=== PATIENT | female | born 1965 | race African-American/Black ===

== ENCOUNTER 2017-04-13 12:42 | Inpatient (IN) | payer OTHER ==
[2017-04-13 14:53] VITALS: BMI 20.9
--- NOTE | 2017-04-13 15:48 | HP ---
CIWA Score - CIWA Score Nausea/Vomitin Muscle Tremors: 3 Anxiety: 3 Agitation: 3 Paroxysmal Sweats: 2 Orientation: 0-Oriented Tacttile Disturbances: 2-Mild Itch/Numbness/Burn Auditory Disturbances: 2-Mild Harshness/Frighten Visual Disturbances: 2-Mild Sensitivity Headache: 2-Mild CIWA-Ar Total Score: 22 Admission ROS BHS - HPI Chief Complaint: i need help to stop drinking alcohol and cocaine Allergies/Adverse Reactions: Allergies Allergy/AdvReac Type Severity Reaction Status Date / Time Penicillins Allergy Severe Rash Verified 04/13/17 15:34 red sauce Allergy Severe Rash Uncoded 04/13/17 15:34 History of Present Illness: this 51 years old female with alcohol and cocaine dependence,seeking detox,last detox in 2007 unknown location syncope alcohol related vaginal discharge trichomonas htn,vertigo,weight loss,type 2 dm,contusion of right thigh,abrasion of left posterior chest wall, sprain of right ankle with abrasion seen and treated at hospital in [place] 1 week ago nicotine dependence longested period of sobriety 7 years Exam Limitations: No Limitations - Ebola screening Have you traveled outside of the country in the last 21 days: No Have you had contact with anyone from an Ebola affected area: No Have you been sick,other than usual withdrawal symptoms: No - Review of Systems Constitutional: Loss of Appetite, Malaise, Night Sweats, Changes in sleep, Unintentional Wgt. Loss EENT: reports: Nose Congestion Respiratory: reports: No Symptoms reported Cardiac: reports: Palpitations GI: reports: Diarrhea, Nausea, Vomiting : reports: No Symptoms Reported Musculoskeletal: reports: Back Pain (swelling with pain over right ankle dedial aspect with pain on palpation), Muscle Pain, Other (contusionof right thigh) Integumentary: reports: Dryness (abrasion of right ankle with tenderness), Other (abrasion of left chest wall posterior) Neuro: reports: Headache, Tremors Endocrine: reports: No Symptoms Reported Hematology: reports: No Symptoms Reported Psychiatric: reports: No Sypmtoms Reported (insomnia), Judgement Intact, Mood/ Affect Appropiate, Depressed Patient History - Patient Medical History Hx Anemia: No Hx Asthma: Yes (on albuterol inhaler) Hx Chronic Obstructive Pulmonary Disease (COPD): No Hx Cancer: No Hx Cardiac Disorders: No Hx Congestive Heart Failure: No Hx Hypertension: Yes (non compliance) Hx Hypercholesterolemia: No Hx Pacemaker: No HX Cerebrovascular Accident: No Hx Seizures: No Hx Dementia: No Hx Diabetes: Yes (non comliance) Hx Gastrointestinal Disorders: No Hx Liver Disease: No Hx Genitourinary Disorders: No Hx Sexually Transmitted Disorders: No Hx Renal Disease (ESRD): No Hx Thyroid Disease: Yes Hx Human Immunodeficiency Virus (HIV): No (11/09 negative) Hx Hepatitis C: No Hx Depression: Yes Hx Suicide Attempt: No Hx Bipolar Disorder: No Hx Schizophrenia: No Other Medical History: insomnia,no suicidal,no homicidal - Patient Surgical History Past Surgical History: No - PPD History Previous Implant?: Yes Documented Results: Positive w/o proof Implanted On Prior [facility] Admission?: No PPD to be Administered?: No - Reproductive History Patient is a Female of Child Bearing Age (11 -55 yrs old): Yes Patient : No - Smoking Cessation Smoking history: Current every day smoker Have you smoked in the past 12 months: Yes Aproximately how many cigarettes per day: 40 Hx Chewing Tobacco Use: No Initiated information on smoking cessation: Yes 'Breaking Loose' booklet given: 04/13/17 - Substance & Tx. History Hx Alcohol Use: Yes Hx Substance Use: Yes Substance Use Type: Alcohol, Cocaine Hx Substance Use Treatment: Yes (2007 [facility]) - Substances Abused Alcohol Route: Oral Frequency: Daily Amount used: 5 pints cognac Age of first use: 16 Date of Last Use: 04/12/17 Crack Route: Smoking Frequency: Daily Amount used: $400 Age of first use: 16 Date of Last Use: 04/12/17 Family Disease History - Family Disease History Family History: Denies Admission Physical Exam [facility] - Vital Signs Vital Signs: Vital Signs - 24 hr 04/13/17 14:48 Temperature 97.0 F L Pulse Rate 99 H Respiratory 20 Rate Blood Pressure 132/7 - Physical General Appearance: Yes: Moderate Distress, Tremorous, Irritable, Sweating, Anxious HEENTM: Yes: Normal ENT Inspection, NELIA, Pharynx Normal Respiratory: Yes: Lungs Clear, Normal Breath Sounds, No Respiratory Distress Neck: Yes: Supple, Trachea in good position Breast: Yes: Breast Exam Deferred Cardiology: Yes: Within Normal Limits, Regular Rhythm, Regular Rate, S1, S2 Abdominal: Yes: Within Normal Limits, Normal Bowel Sounds, Non Tender, Flat, Soft Genitourinary: Yes: Within Normal Limits Back: Yes: Muscle Spasm Musculoskeletal: Yes: Back pain, Muscle Pain Extremities: Yes: Tremors (swelling with pain of right ankle medial aspect with abrasion contusion of right thigh abrasion of left posterior chest wall) Neurological: Yes: advertising coordinator II-XII NML intact, Fully Oriented, Alert, Motor Strength 5/5 Integumentary: Yes: Dry Lymphatic: Yes: Within Normal Limits - Diagnostic (1) Alcohol dependence with uncomplicated withdrawal Current Visit: Yes Status: Acute (2) Cocaine dependence Current Visit: Yes Status: Acute (3) Essential hypertension Current Visit: Yes Status: Acute (4) Vertigo Current Visit: Yes Status: Acute (5) Weight loss Current Visit: Yes Status: Acute (6) Syncope Current Visit: Yes Status: Acute (7) Sprain of right ankle Current Visit: Yes Status: Acute (8) Contusion Current Visit: Yes Status: Acute (9) Asthma Current Visit: Yes Status: Acute (10) Nicotine dependence Current Visit: Yes Status: Acute (11) Anxiety and depression Current Visit: Yes Status: Acute (12) Insomnia Current Visit: Yes Status: Acute (13) Abrasion Current Visit: Yes Status: Acute Cleared for Admission [facility] - Detox or Rehab [facility] Level of Care: Medically Managed Detox Regimen/Protocol: Librium [facility] Breath Alcohol Content Breath Alcohol Content: 0.035 Urine Pregancy Test - Result Urine Test Results: Negative- NO Line Present Urine Drug Screen - Results Drug Screen Negative: No Urine Drug Screen Results: JULIA-Cocaine
[2017-04-13] MEDS ORDERED: LOPERAMIDE HCL 2 MG CAPSULE PO PRN (16:05)
[2017-04-13] MEDS ORDERED: chlordiazePOXIDE HCL 25 MG CAPSULE PO PRN (16:05)
[2017-04-13] MEDS ORDERED: MAG HYDROX/AL HYDROX/SIMETH 30 ML UNIT-DOSE CUP PO PRN (16:05)
[2017-04-13] MEDS ORDERED: guaiFENesin/D-METHORPHAN HB 10 ML UNIT-DOSE CUPS PO PRN (16:05)
[2017-04-13] MEDS ORDERED: NICOTINE POLACRILEX 2 MG GUM BC PRN (16:05)
[2017-04-13] MEDS ORDERED: ACETAMINOPHEN 325 MG TABLET (FP) PO PRN (16:05)
[2017-04-13] MEDS ORDERED: MENTHOL/PHENOL 1 EACH UD MM PRN (16:05)
[2017-04-13] MEDS ORDERED: hydrOXYzine PAMOATE 50 MG CAPSULE (FP) PO PRN (16:05)
[2017-04-13] MEDS ORDERED: MAGNESIUM CITRATE 300 ML BOTTLE PO PRN (16:05)
[2017-04-13] MEDS ORDERED: diphenhydrAMINE HCL 50 MG CAPSULE PO PRN (16:05)
[2017-04-13] MEDS ORDERED: P-EPHED 60MG/TRIPROLIDI 2.5MG TABLET PO PRN (16:05)
[2017-04-13] MEDS ORDERED: MAGNESIUM HYDROX 2400MG/30ML ORAL SUSPENSION 30 ML CUP PO PRN (16:05)
[2017-04-13] MEDS ORDERED: chlordiazePOXIDE HCL 25 MG CAPSULE PO ONE (17:15)
[2017-04-13] MEDS: CYPROHEPTADINE HCL 4 MG TABLET PO SCH (17:35)
[2017-04-13] MEDS: metFORMIN HCL 500 MG TABLET (FP) PO SCH (17:35)
[2017-04-13] MEDS: NICOTINE 21 MG/24 HOURS TOPICAL PATCH TD SCH (17:41)
[2017-04-13] MEDS: chlordiazePOXIDE HCL 25 MG CAPSULE PO SCH (23:35)
[2017-04-13] MEDS: THIAMINE HCL 100 MG TABLET (FP) PO SCH (23:35)
[2017-04-13] MEDS: BACITRACIN 0.9 GM PACKET TP SCH (23:35)
[2017-04-13] MEDS: MECLIZINE HCL 12.5 MG TABLET PO SCH (23:35)
[2017-04-14 02:28] LABS: URINE APPEARANCE CLOUDY; URINE BILIRUBIN NEGATIVE (NEGATIVE); URINE COLOR YELLOW; URINE GLUCOSE (UA) NEGATIVE (NEGATIVE); URINE KETONE NEGATIVE (NEGATIVE); URINE LEUK ESTERASE NEGATIVE (NEGATIVE); URINE NITRITE NEGATIVE (NEGATIVE); URINE PROTEIN NEGATIVE (NEGATIVE); URINE UROBILINOGEN NEGATIVE E.U./dl (0.2-1.0)
[2017-04-14 02:34] LABS: URINE BLOOD 1+ (NEGATIVE)
[2017-04-14 02:39] LABS: CALCIUM OXALATE CRYSTALS RARE /hpf (NONE SEEN); URINE BACTERIA RARE /hpf (NONE SEEN); URINE MUCUS RARE; URINE RBC 16 /hpf (0-3); URINE WBC 2 /hpf (3-5)
[2017-04-14] MEDS: chlordiazePOXIDE HCL 25 MG CAPSULE PO SCH ×4 (06:12→22:37)
[2017-04-14] MEDS: CYPROHEPTADINE HCL 4 MG TABLET PO SCH ×3 (06:13→17:10)
[2017-04-14] MEDS: MECLIZINE HCL 12.5 MG TABLET PO SCH ×4 (06:14→22:37)
[2017-04-14] MEDS: metFORMIN HCL 500 MG TABLET (FP) PO SCH ×2 (07:16→17:10)
--- NOTE | 2017-04-14 09:57 | PN ---
S CIWA - CIWA Score Nausea/Vomitin Muscle Tremors: 3 Anxiety: 3 Agitation: 2 Paroxysmal Sweats: 1-Minimal Palms Moist Orientation: 0-Oriented Tacttile Disturbances: 1-Very Mild Itch/Numbness Auditory Disturbances: 1-Very Mild Visual Disturbances: 1-Very Mild Sensitivity Headache: 2-Mild CIWA-Ar Total Score: 17 BHS Progress Note (SOAP) Subjective: ALERT,IRRITABLE,ANXIOUS,INTERRUPTED SLEEP,TREMOR Objective: 04/14/17 09:55 Vital Signs Temperature 99.3 F 04/14/17 09:30 Pulse Rate 85 04/14/17 09:30 Respiratory Rate 18 04/14/17 09:30 Blood Pressure 132/63 04/14/17 09:30 O2 Sat by Pulse Oximetry (%) EKG NSR,NRMAL ECG Laboratory Last Values POC Glucometer 129 UNITS (()) 04/14/17 07:12 Urine Color Yellow 04/14/17 00:28 Urine Appearance Cloudy 04/14/17 00:28 Urine pH 6.0 (5.0-8.0) 04/14/17 00:28 Urine Protein Negative (NEGATIVE) 04/14/17 00:28 Urine Glucose (UA) Negative (NEGATIVE) 04/14/17 00:28 Urine Ketones Negative (NEGATIVE) 04/14/17 00:28 Urine Blood 1+ (NEGATIVE) H 04/14/17 00:28 Urine Nitrite Negative (NEGATIVE) 04/14/17 00:28 Urine Bilirubin Negative (NEGATIVE) 04/14/17 00:28 Urine Urobilinogen Negative E.U./dl (0.2-1.0) 04/14/17 00:28 Ur Leukocyte Esterase Negative (NEGATIVE) 04/14/17 00:28 Urine RBC 16 /hpf (0-3) 04/14/17 00:28 Urine WBC 2 /hpf (3-5) 04/14/17 00:28 Ur Epithelial Cells Rare /hpf (FEW) 04/14/17 00:28 Calcium Oxalate Crystal Rare /hpf (NONE SEEN) 04/14/17 00:28 Urine Bacteria Rare /hpf (NONE SEEN) 04/14/17 00:28 Urine Mucus Rare 04/14/17 00:28 04/14/17 09:56 Assessment: 04/14/17 09:56 WITHDRAWAL SYMPTOM Plan: CONTINUE DETOX,LABS PENDING
[2017-04-14 10:08] LABS: MCH 32.8 pg (25.7-33.7); MCHC 33.4 g/dl (32.0-36.0); MEAN CELL VOLUME 98.3 fl (80-96); MEAN PLT VOLUME 10.5 fl (7.5-11.1); PLATELET COUNT 176 K/MM3 (134-434); RDW 13.3 % (11.6-15.6); WHITE BLOOD COUNT 9.8 K/mm3 (4.0-10.0)
[2017-04-14 10:41] LABS: HIV 1 & 2 AB NEGATIVE; HIV 1 AGp24 NEGATIVE
[2017-04-14 11:01] LABS: SICKLE CELL SCREEN NEGATIVE (NEGATIVE)
[2017-04-14 11:04] LABS: ALBUMIN 3.3 g/dl (3.4-5.0); ALK PHOS 94 U/L (45-117); ANION GAP 6 (8-16); BILIRUBIN,TOTAL 0.9 mg/dL (0.2-1.0); CALCIUM 8.9 mg/dL (8.5-10.1); CO2 30 mmol/L (21-32); CREATININE 0.9 mg/dL (0.55-1.02); GLUCOSE,RANDOM 97 mg/dL (74-106); SGOT/AST 28 U/L (15-37); SGPT/ALT 23 U/L (12-78); TOT PROT 6.9 g/dl (6.4-8.2)
[2017-04-14] MEDS: HYDROCHLOROTHIAZIDE 12.5 MG CAPSULE (FP) PO SCH (11:13)
[2017-04-14] MEDS: PRENATAL VITAMINS W/ FOLIC ACID TABLET (FP) PO SCH (11:13)
[2017-04-14] MEDS: BACITRACIN 0.9 GM PACKET TP SCH ×2 (12:30→22:36)
[2017-04-14] MEDS: NICOTINE 21 MG/24 HOURS TOPICAL PATCH TD SCH (12:34)
--- NOTE | 2017-04-14 13:21 | CONSULT ---
[facility] Psychiatric Consult - Data Date of interview: 04/14/17 Admission source: [facility] Identifying data: This is 51 years old male with no psychiatric hospitalization history intoxiocated with: Alcohol, Cocaine and Nicotine Substance Abuse History: - Smoking Cessation. Smoking history: Current every day smoker. Have you smoked in the past 12 months: Yes. Aproximately how many cigarettes per day: 40. Hx Chewing Tobacco Use: No. Initiated information on smoking cessation: Yes. 'Breaking Loose' booklet given: 04/13/17. - Substance & Tx. History. Hx Alcohol Use: Yes. Hx Substance Use: Yes. Substance Use Type : Alcohol, Cocaine. Hx Substance Use Treatment: Yes ([facility] - Substances Abused. Alcohol. Route: Oral. Frequency: Daily. Amount used: 5 pints cognac. Age of first use: 16. Date of Last Use: . Crack. Route: Smoking. Frequency: Daily. Amount used: $400. Age of first use: 16. Date of Last Use: 04/12/17 Medical History: Vertigo, Right Ankle Sprain, Asrthma,HTN, Syncope history Psychiatric History: Patient reports history of depression and anxiety, reports no medicaotions taking prior to admission Physical/Sexual Abuse/Trauma History: Denies Additional Comment: Observation. Detox Unit Care Protocol Mental Status Exam - Mental Status Exam Alert and Oriented to: Person Cognitive Function: Fair Patient Appearance: Unkempt Mood: Sad Affect: Flat Patient Behavior: Sedated Speech Pattern: Delayed Voice Loudness: Mildly Soft/Quiet Thought Process: Circumstantial Thought Disorder: Being Controlled Hallucinations: Denies Suicidal Ideation: Denies Homicidal Ideation: Denies Insight/Judgement: Fair Sleep: Difficulty falling asleep Appetite: Weight loss Muscle strength/Tone: Mild Hypotonicity Gait/Station: Shuffling Additional Comments: Observation. Detox Unit Care Protocol Psychiatric Findings - Problem List ([place] 1, 2,3) (1) Alcoh dep NEC/NOS, unspec Status: Acute (2) Alcohol dependence Status: Acute (3) Alcohol dependence with uncomplicated withdrawal Status: Acute (4) Cocaine dependence Status: Acute (5) Nicotine dependence Status: Acute (6) Weight loss Status: Acute (7) Drug-induced mood disorder Status: Acute - Initial Treatment Plan Initial Treatment Plan: Observation. Detox Unit Care Protocol
--- NOTE | 2017-04-14 15:49 | EKG ---
Test Reason : Blood Pressure : / mmHG Vent. Rate : 083 BPM Atrial Rate : 083 BPM P-R Int : 160 ms QRS Dur : 104 ms QT Int : 378 ms P-R-T Axes : 073 033 069 degrees QTc Int : 444 ms NORMAL SINUS RHYTHM NORMAL ECG NO PREVIOUS ECGS AVAILABLE Confirmed by HIRA RANGEL MD ([id number]) on 04/14/2017 3:49:40 PM Referred By: Confirmed By:HIRA RANGEL MD
[2017-04-14] MEDS: IBUPROFEN 400 MG TABLET (FP) PO PRN (18:08)
[2017-04-14] MEDS: THIAMINE HCL 100 MG TABLET (FP) PO SCH (23:31)
[2017-04-15] MEDS: IBUPROFEN 400 MG TABLET (FP) PO PRN (06:29)
[2017-04-15] MEDS: CYPROHEPTADINE HCL 4 MG TABLET PO SCH ×3 (06:29→17:37)
[2017-04-15] MEDS: MECLIZINE HCL 12.5 MG TABLET PO SCH ×3 (06:29→22:39)
[2017-04-15] MEDS: chlordiazePOXIDE HCL 25 MG CAPSULE PO SCH ×4 (06:35→17:37)
[2017-04-15] MEDS: IBUPROFEN 600 MG TABLET (FP) PO PRN ×2 (09:39→17:37)
--- NOTE | 2017-04-15 10:03 | PN ---
S CIWA - CIWA Score Nausea/Vomitin Muscle Tremors: 3 Anxiety: 3 Agitation: 2 Paroxysmal Sweats: 1-Minimal Palms Moist Orientation: 0-Oriented Tacttile Disturbances: 1-Very Mild Itch/Numbness Auditory Disturbances: 1-Very Mild Visual Disturbances: 1-Very Mild Sensitivity Headache: 2-Mild CIWA-Ar Total Score: 17 BHS Progress Note (SOAP) Subjective: ALERT,IRRITABLE,ANXIOUS,INTERRUPTED SLEEP,PAIN IN THE RIGHT FOOT,ANKLE Objective: 04/15/17 09:53 Vital Signs Temperature 98.1 F 04/15/17 06:00 Pulse Rate 63 04/15/17 06:00 Respiratory Rate 18 04/15/17 06:00 Blood Pressure 134/80 04/15/17 06:00 O2 Sat by Pulse Oximetry (%) 04/15/17 10:03 CHEAT X RAY NORMAL RIGHT ANKLE AND FOOT CALCIFICATION AND SOFT TISSUE SWELLING ADJACENT TO TIP OF MEDIAL MALLEOLUS CONSISTENT WITH AVULSION INJURY Assessment: 04/15/17 10:06 WITHDRAWAL SYMPTOM FX OF MEDIAL MALLEOLUS TIP RIGHT 04/15/17 10:18 04/15/17 10:18 Plan: TO ER AT [facility] FOR EVALUATION AND TREATMENT,SPOKE WITH DR LEVI,TOE BE TRANSPORTED BY [facility]
[2017-04-15] MEDS: NICOTINE 21 MG/24 HOURS TOPICAL PATCH TD SCH (10:08)
[2017-04-15] MEDS: HYDROCHLOROTHIAZIDE 12.5 MG CAPSULE (FP) PO SCH (10:08)
[2017-04-15] MEDS: PRENATAL VITAMINS W/ FOLIC ACID TABLET (FP) PO SCH (10:08)
[2017-04-15] MEDS: metFORMIN HCL 500 MG TABLET (FP) PO SCH ×2 (10:08→17:37)
[2017-04-15] MEDS: BACITRACIN 0.9 GM PACKET TP SCH ×2 (10:09→22:39)
[2017-04-15] MEDS: chlordiazePOXIDE 5 MG CAPSULE PO SCH (22:39)
[2017-04-15] MEDS: THIAMINE HCL 100 MG TABLET (FP) PO SCH (22:40)
[2017-04-16] MEDS: CYPROHEPTADINE HCL 4 MG TABLET PO SCH ×3 (06:23→17:16)
[2017-04-16] MEDS: chlordiazePOXIDE 5 MG CAPSULE PO SCH ×3 (06:23→17:17)
[2017-04-16] MEDS: MECLIZINE HCL 12.5 MG TABLET PO SCH ×3 (06:27→21:58)
[2017-04-16] MEDS: IBUPROFEN 600 MG TABLET (FP) PO PRN ×3 (06:29→22:23)
--- NOTE | 2017-04-16 10:19 | PN ---
[facility]HS Progress Note (SOAP) Subjective: ALERT,IRRITABLE,ANXIOUS,PAIN IN THE RIGHT ANKLE AND FOOT IS LESS,INTERRUPTED SLEEP Objective: 04/16/17 10:18 Vital Signs Temperature 98.8 F 04/16/17 10:11 Pulse Rate 79 04/16/17 10:11 Respiratory Rate 18 04/16/17 10:11 Blood Pressure 116/66 04/16/17 10:11 O2 Sat by Pulse Oximetry (%) Assessment: 04/16/17 10:18 WITHDRAWAL SYMPTOM Plan: CONTINUE DETOX
[2017-04-16] MEDS: NICOTINE 21 MG/24 HOURS TOPICAL PATCH TD SCH (10:51)
[2017-04-16] MEDS: PRENATAL VITAMINS W/ FOLIC ACID TABLET (FP) PO SCH (10:52)
[2017-04-16] MEDS: BACITRACIN 0.9 GM PACKET TP SCH ×2 (10:52→21:59)
[2017-04-16] MEDS: HYDROCHLOROTHIAZIDE 12.5 MG CAPSULE (FP) PO SCH (10:52)
[2017-04-16] MEDS: metFORMIN HCL 500 MG TABLET (FP) PO SCH ×2 (11:46→17:16)
[2017-04-16] MEDS: THIAMINE HCL 100 MG TABLET (FP) PO SCH (21:58)
[2017-04-16] MEDS: chlordiazePOXIDE HCL 10 MG CAPSULE PO SCH (22:23)
[2017-04-17 05:54] VITALS: BP 120/74; PULSE 61; TEMP 97
[2017-04-17] MEDS: MECLIZINE HCL 12.5 MG TABLET PO SCH ×2 (05:56→13:43)
[2017-04-17] MEDS: chlordiazePOXIDE HCL 10 MG CAPSULE PO SCH ×2 (05:56→11:01)
[2017-04-17] MEDS: CYPROHEPTADINE HCL 4 MG TABLET PO SCH ×2 (06:00→10:37)
[2017-04-17] MEDS: metFORMIN HCL 500 MG TABLET (FP) PO SCH (07:19)
--- NOTE | 2017-04-17 08:49 | PN ---
S Progress Note (SOAP) Subjective: ALERT,IRRITABLE,PAIN IN THE RIGHT ANKLE Objective: 04/17/17 08:47 Vital Signs Temperature 97.0 F L 04/17/17 05:54 Pulse Rate 61 04/17/17 05:54 Respiratory Rate 16 04/17/17 05:54 Blood Pressure 120/74 04/17/17 05:54 O2 Sat by Pulse Oximetry (%) 04/17/17 08:47 Assessment: 04/17/17 08:47 DETOX COMPLETE,NO WITHDRAWAL SYMPTOM Plan: DISCHARGE TODAY,TO REHAB ARRANGEMENT
--- NOTE | 2017-04-17 08:56 | DS ---
[facility] Detox Discharge Summary Admission Date: 04/13/17 Discharge Date: 04/17/17 - History Present History: Alcohol Dependence, Cocaine Dependence Additional Comments: FOLLOW UP WITH [facility] ARR[facility] Pertinent Past History: ESSENTIAL HYPERTENSION VERTIGO WEIGHT LOSS SYNCOPE ASTHMA TYPE 2 DM CONTUSIONS INSOMNIA ABRASIONS - Physical Exam Results Vital Signs: Vital Signs Temperature 97.0 F L 04/17/17 05:54 Pulse Rate 61 04/17/17 05:54 Respiratory Rate 16 04/17/17 05:54 Blood Pressure 120/74 04/17/17 05:54 O2 Sat by Pulse Oximetry (%) Pertinent Admission Physical Exam Findings: WITHDRAWAL SYMPTOM - Treatment Hospital Course: Detox Protocol Followed, Detoxed Safely, Responded well, Discharged Condition Good, Rehab Referral Accepted Patient has Accepted a Rehab Referral to: [facility] - Medication Discharge Medications: Ambulatory Orders Cyproheptadine [Periactin -] 4 mg PO Q8H 04/13/17 Hydrochlorothiazide [Hctz -] 12.5 mg PO DAILY 04/13/17 Meclizine HCl [Antivert -] 12.5 mg PO TID 04/13/17 Metformin HCl [Glucophage -] 500 mg PO BID 04/13/17 - Diagnosis (1) Alcohol dependence with uncomplicated withdrawal Current Visit: Yes Status: Acute (2) Cocaine dependence Current Visit: Yes Status: Acute (3) Essential hypertension Current Visit: Yes Status: Acute (4) Vertigo Current Visit: Yes Status: Acute (5) Weight loss Current Visit: Yes Status: Acute (6) Syncope Current Visit: Yes Status: Acute (7) Sprain of right ankle Current Visit: Yes Status: Acute (8) Contusion Current Visit: Yes Status: Acute (9) Asthma Current Visit: Yes Status: Acute (10) Nicotine dependence Current Visit: Yes Status: Acute (11) Anxiety and depression Current Visit: Yes Status: Acute (12) Insomnia Current Visit: Yes Status: Acute (13) Abrasion Current Visit: Yes Status: Acute (14) Fracture of right ankle Current Visit: Yes Status: Acute (15) Avulsion fracture of ankle Current Visit: No Status: Acute Qualifiers: Encounter type: initial encounter Fracture type: closed Laterality : left Qualified Code(s): S82.892A - Other fracture of left lower leg, initial encounter for closed fracture - AMA Did Patient Leave Against Medical Advice: No
[2017-04-17] MEDS: IBUPROFEN 600 MG TABLET (FP) PO PRN (10:37)
[2017-04-17] MEDS: HYDROCHLOROTHIAZIDE 12.5 MG CAPSULE (FP) PO SCH (10:57)
[2017-04-17] MEDS: BACITRACIN 0.9 GM PACKET TP SCH (10:57)
[2017-04-17] MEDS: NICOTINE 21 MG/24 HOURS TOPICAL PATCH TD SCH (10:57)
[2017-04-17] MEDS: PRENATAL VITAMINS W/ FOLIC ACID TABLET (FP) PO SCH (10:58)
== END 2017-04-17 13:46 | disposition other institution (70) | DRG 774 ==
LOC: YASAS 12:42 → Y6N 16:27
PROVIDERS: ADMIT Internal Medicine; ATTEND Internal Medicine
PROC: HZ2ZZZZ Detoxification Services for Substance Abuse Treatment (ICD-10-PCS; principal; 2017-04-13)
DX: F10.230 Alcohol dependence with withdrawal, uncomplicated (principal); F14.20 Cocaine dependence, uncomplicated; F17.210 Nicotine dependence, cigarettes, uncomplicated; F41.8 Other specified anxiety disorders; I10 Essential (primary) hypertension; R42 Dizziness and giddiness; J45.909 Unspecified asthma, uncomplicated; G47.00 Insomnia, unspecified; E11.9 Type 2 diabetes mellitus without complications; Z91.14 Patient's other noncompliance with medication regimen; Z87.898 Personal history of other specified conditions; Z86.79 Personal history of other diseases of the circulatory system; S82.892D Other fracture of left lower leg, subsequent encounter for closed fracture with routine healing; S20.319D Abrasion of unspecified front wall of thorax, subsequent encounter; S70.11XD Contusion of right thigh, subsequent encounter; X58.XXXD Exposure to other specified factors, subsequent encounter
CPT/HCPCS: 36415; 71010-TC; 73610-TC-RT; 73630-TC-RT; 80053; 81003; 81015; 85027; 85660; 86593; 87389; 93005; 93010

== ENCOUNTER 2017-04-15 11:22 | Emergency (ER) | payer OTHER ==
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
[2017-04-15 11:48] VITALS: TEMP 98.2; BMI 20.9
[2017-04-15] MEDS ORDERED: DIPHTH,PERTUSS(ACELL),TET VAC 0.5 ML VIAL IM ONE (11:53)
[2017-04-15 14:55] VITALS: BP 127/78; PULSE 69
== END 2017-04-15 14:54 | disposition other institution (70) ==
LOC: JER 11:22
PROC: 3E0234Z Introduction of Serum, Toxoid and Vaccine into Muscle, Percutaneous Approach (ICD-10-PCS; principal; 2017-04-15)
DX: S82.892A Other fracture of left lower leg, initial encounter for closed fracture (principal); E11.9 Type 2 diabetes mellitus without complications; I10 Essential (primary) hypertension; Z91.14 Patient's other noncompliance with medication regimen; F14.10 Cocaine abuse, uncomplicated; F10.10 Alcohol abuse, uncomplicated; V48.1XXA Car passenger injured in noncollision transport accident in nontraffic accident, initial encounter; Y92.414 Local residential or business street as the place of occurrence of the external cause; Y93.39 Activity, other involving climbing, rappelling and jumping off; Y99.8 Other external cause status
CPT/HCPCS: 90471; 99283-25

== ENCOUNTER 2017-04-17 13:51 | Inpatient (IN) | payer OTHER ==
[2017-04-17] MEDS ORDERED: guaiFENesin/D-METHORPHAN HB 10 ML UNIT-DOSE CUPS PO PRN (15:07)
[2017-04-17] MEDS ORDERED: LOPERAMIDE HCL 2 MG CAPSULE PO PRN (15:07)
[2017-04-17] MEDS ORDERED: MAGNESIUM CITRATE 300 ML BOTTLE PO PRN (15:07)
[2017-04-17] MEDS ORDERED: IBUPROFEN 400 MG TABLET (FP) PO PRN (15:07)
[2017-04-17] MEDS ORDERED: MENTHOL/PHENOL 1 EACH UD MM PRN (15:07)
[2017-04-17] MEDS ORDERED: P-EPHED 60MG/TRIPROLIDI 2.5MG TABLET PO PRN (15:07)
[2017-04-17] MEDS ORDERED: MAGNESIUM HYDROX 2400MG/30ML ORAL SUSPENSION 30 ML CUP PO PRN (15:07)
[2017-04-17] MEDS ORDERED: hydrOXYzine PAMOATE 25 MG CAPSULE (FP) PO PRN (15:07)
[2017-04-17] MEDS ORDERED: MECLIZINE HCL 12.5 MG TABLET PO PRN (15:11)
--- NOTE | 2017-04-17 15:23 | HP ---
[facility] Rehab Assess/Revision - Admission History Admitted to Rehab from: [facility] Date of Admission to Rehab: 04/17/17 - Findings Detox History & Physical reviewed: Yes Concur with findings: Yes Comments/Additional Findings: FOR REHAB PROTOCOL
[2017-04-17] MEDS: CYPROHEPTADINE HCL 4 MG TABLET PO SCH ×2 (17:26→23:18)
[2017-04-17] MEDS: THIAMINE HCL 100 MG TABLET (FP) PO SCH (21:20)
[2017-04-17] MEDS: diphenhydrAMINE HCL 50 MG CAPSULE PO PRN (21:20)
[2017-04-17] MEDS: IBUPROFEN 600 MG TABLET (FP) PO PRN (23:18)
[2017-04-18] MEDS: CYPROHEPTADINE HCL 4 MG TABLET PO SCH ×3 (06:26→21:46)
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
[2017-04-18] MEDS: metFORMIN HCL 500 MG TABLET (FP) PO SCH ×2 (07:20→16:55)
[2017-04-18] MEDS: BACITRACIN 0.9 GM PACKET TP SCH ×2 (10:58→21:46)
[2017-04-18] MEDS: PRENATAL VITAMINS W/ FOLIC ACID TABLET (FP) PO SCH (10:58)
[2017-04-18] MEDS: HYDROCHLOROTHIAZIDE 12.5 MG CAPSULE (FP) PO SCH (10:58)
[2017-04-18] MEDS: ACETAMINOPHEN 325 MG TABLET (FP) PO PRN ×2 (11:01→17:28)
--- NOTE | 2017-04-18 14:43 | HP ---
Psychiatrist Admission - Data Date of interview: 04/18/17 Admission source: 6N Vital Signs: Vital Signs - 24 hr 04/18/17 04/18/17 04/18/17 00:30 03:30 07:26 Temperature 97.8 F Pulse Rate 66 Respiratory 18 18 18 Rate Blood Pressure 129/95 Allergies/Adverse Reactions: Allergies Allergy/AdvReac Type Severity Reaction Status Date / Time Penicillins Allergy Severe Rash Verified 04/15/17 11:40 red sauce Allergy Severe Rash Uncoded 04/15/17 11:40 Psychiatric Findings - Problem List ([place] 1, 2,3) (1) Alcoh dep NEC/NOS, unspec Current Visit: Yes Status: Acute (2) Alcohol dependence Current Visit: Yes Status: Acute (3) Cocaine dependence Current Visit: No Status: Acute (4) Nicotine dependence Current Visit: No Status: Acute
[2017-04-18] MEDS: IBUPROFEN 600 MG TABLET (FP) PO PRN ×2 (14:53→22:01)
[2017-04-18] MEDS: diphenhydrAMINE HCL 50 MG CAPSULE PO PRN (21:46)
[2017-04-18] MEDS: THIAMINE HCL 100 MG TABLET (FP) PO SCH (21:46)
[2017-04-18] MEDS: traZODone HCL 50 MG TABLET (FP) PO SCH (21:47)
[2017-04-19] MEDS: metFORMIN HCL 500 MG TABLET (FP) PO SCH ×2 (06:20→17:30)
[2017-04-19] MEDS: CYPROHEPTADINE HCL 4 MG TABLET PO SCH ×3 (06:22→22:09)
[2017-04-19] MEDS: HYDROCHLOROTHIAZIDE 12.5 MG CAPSULE (FP) PO SCH (10:34)
[2017-04-19] MEDS: PRENATAL VITAMINS W/ FOLIC ACID TABLET (FP) PO SCH (10:35)
[2017-04-19] MEDS: SERTRALINE HCL 50 MG TABLET (FP) PO SCH (10:35)
[2017-04-19] MEDS: BACITRACIN 0.9 GM PACKET TP SCH ×2 (10:37→22:09)
[2017-04-19] MEDS: IBUPROFEN 600 MG TABLET (FP) PO PRN (19:20)
[2017-04-19] MEDS: THIAMINE HCL 100 MG TABLET (FP) PO SCH (22:09)
[2017-04-19] MEDS: traZODone HCL 50 MG TABLET (FP) PO SCH (22:09)
[2017-04-20] MEDS: CYPROHEPTADINE HCL 4 MG TABLET PO SCH ×3 (06:49→21:46)
[2017-04-20] MEDS: metFORMIN HCL 500 MG TABLET (FP) PO SCH ×2 (07:04→16:50)
[2017-04-20] MEDS: HYDROCHLOROTHIAZIDE 12.5 MG CAPSULE (FP) PO SCH (10:10)
[2017-04-20] MEDS: SERTRALINE HCL 50 MG TABLET (FP) PO SCH (10:10)
[2017-04-20] MEDS: PRENATAL VITAMINS W/ FOLIC ACID TABLET (FP) PO SCH (10:10)
[2017-04-20] MEDS: BACITRACIN 0.9 GM PACKET TP SCH ×2 (10:11→21:44)
[2017-04-20] MEDS: IBUPROFEN 600 MG TABLET (FP) PO PRN ×2 (10:11→21:44)
[2017-04-20] MEDS: diphenhydrAMINE HCL 50 MG CAPSULE PO PRN (21:46)
[2017-04-20] MEDS: traZODone HCL 50 MG TABLET (FP) PO SCH (21:46)
[2017-04-20] MEDS: THIAMINE HCL 100 MG TABLET (FP) PO SCH (21:47)
[2017-04-21] MEDS: CYPROHEPTADINE HCL 4 MG TABLET PO SCH ×3 (07:07→21:40)
[2017-04-21] MEDS: metFORMIN HCL 500 MG TABLET (FP) PO SCH ×2 (07:07→16:41)
[2017-04-21] MEDS: BACITRACIN 0.9 GM PACKET TP SCH ×2 (10:10→21:40)
[2017-04-21] MEDS: HYDROCHLOROTHIAZIDE 12.5 MG CAPSULE (FP) PO SCH (10:11)
[2017-04-21] MEDS: PRENATAL VITAMINS W/ FOLIC ACID TABLET (FP) PO SCH (10:11)
[2017-04-21] MEDS: SERTRALINE HCL 50 MG TABLET (FP) PO SCH (10:11)
[2017-04-21] MEDS: IBUPROFEN 600 MG TABLET (FP) PO PRN (14:26)
[2017-04-21] MEDS: THIAMINE HCL 100 MG TABLET (FP) PO SCH (21:40)
[2017-04-21] MEDS: traZODone HCL 50 MG TABLET (FP) PO SCH (21:46)
[2017-04-22] MEDS: CYPROHEPTADINE HCL 4 MG TABLET PO SCH ×3 (06:40→21:43)
[2017-04-22] MEDS: ACETAMINOPHEN 325 MG TABLET (FP) PO PRN (06:41)
[2017-04-22] MEDS: metFORMIN HCL 500 MG TABLET (FP) PO SCH ×2 (07:20→16:55)
[2017-04-22] MEDS: PRENATAL VITAMINS W/ FOLIC ACID TABLET (FP) PO SCH (10:02)
[2017-04-22] MEDS: BACITRACIN 0.9 GM PACKET TP SCH ×2 (10:02→21:43)
[2017-04-22] MEDS: HYDROCHLOROTHIAZIDE 12.5 MG CAPSULE (FP) PO SCH (10:02)
[2017-04-22] MEDS: SERTRALINE HCL 50 MG TABLET (FP) PO SCH (10:02)
[2017-04-22] MEDS: IBUPROFEN 600 MG TABLET (FP) PO PRN ×2 (13:19→21:43)
[2017-04-22] MEDS: traZODone HCL 50 MG TABLET (FP) PO SCH (21:43)
[2017-04-22] MEDS: diphenhydrAMINE HCL 50 MG CAPSULE PO PRN (21:43)
[2017-04-22] MEDS: THIAMINE HCL 100 MG TABLET (FP) PO SCH (21:43)
[2017-04-23] MEDS: metFORMIN HCL 500 MG TABLET (FP) PO SCH ×2 (06:26→18:00)
[2017-04-23] MEDS: CYPROHEPTADINE HCL 4 MG TABLET PO SCH ×3 (06:26→22:14)
[2017-04-23] MEDS: HYDROCHLOROTHIAZIDE 12.5 MG CAPSULE (FP) PO SCH (09:50)
[2017-04-23] MEDS: SERTRALINE HCL 50 MG TABLET (FP) PO SCH (09:50)
[2017-04-23] MEDS: BACITRACIN 0.9 GM PACKET TP SCH ×2 (09:50→22:14)
[2017-04-23] MEDS: PRENATAL VITAMINS W/ FOLIC ACID TABLET (FP) PO SCH (09:50)
[2017-04-23] MEDS: IBUPROFEN 600 MG TABLET (FP) PO PRN (09:51)
[2017-04-23] MEDS: ACETAMINOPHEN 325 MG TABLET (FP) PO PRN (13:21)
[2017-04-23] MEDS: traZODone HCL 50 MG TABLET (FP) PO SCH (22:14)
[2017-04-23] MEDS: diphenhydrAMINE HCL 50 MG CAPSULE PO PRN (22:14)
[2017-04-23] MEDS: THIAMINE HCL 100 MG TABLET (FP) PO SCH (22:14)
[2017-04-24] MEDS: diphenhydrAMINE HCL 50 MG CAPSULE PO PRN ×2 (00:29→21:36)
[2017-04-24] MEDS: ACETAMINOPHEN 325 MG TABLET (FP) PO PRN (00:29)
[2017-04-24] MEDS: metFORMIN HCL 500 MG TABLET (FP) PO SCH ×2 (06:43→17:56)
[2017-04-24] MEDS: CYPROHEPTADINE HCL 4 MG TABLET PO SCH ×3 (06:43→21:36)
[2017-04-24] MEDS: IBUPROFEN 600 MG TABLET (FP) PO PRN ×2 (06:46→13:59)
[2017-04-24] MEDS: BACITRACIN 0.9 GM PACKET TP SCH ×2 (09:58→21:36)
[2017-04-24] MEDS: PRENATAL VITAMINS W/ FOLIC ACID TABLET (FP) PO SCH (09:58)
[2017-04-24] MEDS: SERTRALINE HCL 50 MG TABLET (FP) PO SCH (09:58)
[2017-04-24] MEDS: HYDROCHLOROTHIAZIDE 12.5 MG CAPSULE (FP) PO SCH (09:58)
[2017-04-24] MEDS: traZODone HCL 50 MG TABLET (FP) PO SCH (21:36)
[2017-04-24] MEDS: THIAMINE HCL 100 MG TABLET (FP) PO SCH (21:44)
[2017-04-25] MEDS: CYPROHEPTADINE HCL 4 MG TABLET PO SCH ×3 (06:47→21:43)
[2017-04-25] MEDS: IBUPROFEN 600 MG TABLET (FP) PO PRN ×2 (06:48→17:34)
[2017-04-25] MEDS: metFORMIN HCL 500 MG TABLET (FP) PO SCH ×2 (08:19→16:43)
--- NOTE | 2017-04-25 09:21 | PN ---
S Progress Note Note: LEFT KNEE PAIN,HYPERTENSION,ON HYDROCHLOROTHIZIDE,STATED USED TO TAKE LISINOPRIL ,WILL START LISINOPRIL 5 MGS PO DAILY Vital Signs Temperature 98.4 F 04/25/17 06:54 Pulse Rate 67 04/25/17 06:54 Respiratory Rate 16 04/25/17 06:54 Blood Pressure 139/94 04/25/17 06:54 O2 Sat by Pulse Oximetry (%) BP MONITORING XRAY OF LEFT KNEE R/O ARTHRITIS EXAMINATION PAIN ON MOVEMENT OF LEFT KNEE
[2017-04-25] MEDS: SERTRALINE HCL 50 MG TABLET (FP) PO SCH (10:15)
[2017-04-25] MEDS: PRENATAL VITAMINS W/ FOLIC ACID TABLET (FP) PO SCH (10:15)
[2017-04-25] MEDS: LISINOPRIL 5 MG TABLET (FP) PO SCH (10:15)
[2017-04-25] MEDS: HYDROCHLOROTHIAZIDE 12.5 MG CAPSULE (FP) PO SCH (10:15)
[2017-04-25] MEDS: BACITRACIN 0.9 GM PACKET TP SCH ×2 (10:15→21:43)
[2017-04-25] MEDS: ACETAMINOPHEN 325 MG TABLET (FP) PO PRN (10:22)
[2017-04-25] MEDS: traZODone HCL 50 MG TABLET (FP) PO SCH (21:43)
[2017-04-25] MEDS: diphenhydrAMINE HCL 50 MG CAPSULE PO PRN (21:43)
[2017-04-25] MEDS: THIAMINE HCL 100 MG TABLET (FP) PO SCH (21:43)
[2017-04-26] MEDS: metFORMIN HCL 500 MG TABLET (FP) PO SCH ×2 (06:41→17:26)
[2017-04-26] MEDS: CYPROHEPTADINE HCL 4 MG TABLET PO SCH ×3 (06:42→21:56)
[2017-04-26] MEDS: BACITRACIN 0.9 GM PACKET TP SCH ×2 (09:59→21:57)
[2017-04-26] MEDS: PRENATAL VITAMINS W/ FOLIC ACID TABLET (FP) PO SCH (09:59)
[2017-04-26] MEDS: LISINOPRIL 5 MG TABLET (FP) PO SCH (09:59)
[2017-04-26] MEDS: SERTRALINE HCL 50 MG TABLET (FP) PO SCH (09:59)
[2017-04-26] MEDS: HYDROCHLOROTHIAZIDE 12.5 MG CAPSULE (FP) PO SCH (09:59)
[2017-04-26] MEDS: IBUPROFEN 600 MG TABLET (FP) PO PRN (12:57)
[2017-04-26] MEDS: ACETAMINOPHEN 325 MG TABLET (FP) PO PRN (15:42)
[2017-04-26] MEDS: THIAMINE HCL 100 MG TABLET (FP) PO SCH (21:56)
[2017-04-26] MEDS: traZODone HCL 50 MG TABLET (FP) PO SCH (21:57)
[2017-04-26] MEDS: diphenhydrAMINE HCL 50 MG CAPSULE PO PRN (22:07)
[2017-04-27] MEDS: CYPROHEPTADINE HCL 4 MG TABLET PO SCH ×3 (06:29→21:35)
[2017-04-27] MEDS: metFORMIN HCL 500 MG TABLET (FP) PO SCH ×2 (08:35→16:40)
[2017-04-27] MEDS: HYDROCHLOROTHIAZIDE 12.5 MG CAPSULE (FP) PO SCH (09:45)
[2017-04-27] MEDS: PRENATAL VITAMINS W/ FOLIC ACID TABLET (FP) PO SCH (09:45)
[2017-04-27] MEDS: BACITRACIN 0.9 GM PACKET TP SCH ×2 (09:45→22:16)
[2017-04-27] MEDS: LISINOPRIL 5 MG TABLET (FP) PO SCH (09:46)
[2017-04-27] MEDS: SERTRALINE HCL 50 MG TABLET (FP) PO SCH (09:46)
[2017-04-27] MEDS: IBUPROFEN 600 MG TABLET (FP) PO PRN ×2 (13:43→22:47)
[2017-04-27] MEDS: THIAMINE HCL 100 MG TABLET (FP) PO SCH (21:35)
[2017-04-27] MEDS: traZODone HCL 50 MG TABLET (FP) PO SCH (21:35)
[2017-04-27] MEDS: diphenhydrAMINE HCL 50 MG CAPSULE PO PRN (21:35)
[2017-04-28] MEDS: metFORMIN HCL 500 MG TABLET (FP) PO SCH ×2 (06:24→16:47)
[2017-04-28] MEDS: CYPROHEPTADINE HCL 4 MG TABLET PO SCH ×3 (06:24→21:32)
[2017-04-28] MEDS: SERTRALINE HCL 50 MG TABLET (FP) PO SCH (09:49)
[2017-04-28] MEDS: HYDROCHLOROTHIAZIDE 12.5 MG CAPSULE (FP) PO SCH (09:49)
[2017-04-28] MEDS: LISINOPRIL 5 MG TABLET (FP) PO SCH (09:49)
[2017-04-28] MEDS: IBUPROFEN 600 MG TABLET (FP) PO PRN ×3 (09:50→22:47)
[2017-04-28] MEDS: PRENATAL VITAMINS W/ FOLIC ACID TABLET (FP) PO SCH (10:06)
[2017-04-28] MEDS: BACITRACIN 0.9 GM PACKET TP SCH ×2 (10:48→21:32)
[2017-04-28] MEDS: THIAMINE HCL 100 MG TABLET (FP) PO SCH (21:32)
[2017-04-28] MEDS: traZODone HCL 50 MG TABLET (FP) PO SCH (21:32)
[2017-04-28] MEDS: diphenhydrAMINE HCL 50 MG CAPSULE PO PRN (21:43)
[2017-04-29] MEDS: CYPROHEPTADINE HCL 4 MG TABLET PO SCH ×3 (06:41→21:32)
[2017-04-29] MEDS: metFORMIN HCL 500 MG TABLET (FP) PO SCH ×2 (06:43→16:52)
[2017-04-29] MEDS: BACITRACIN 0.9 GM PACKET TP SCH ×2 (09:46→21:32)
[2017-04-29] MEDS: LISINOPRIL 5 MG TABLET (FP) PO SCH (09:46)
[2017-04-29] MEDS: SERTRALINE HCL 50 MG TABLET (FP) PO SCH (09:46)
[2017-04-29] MEDS: HYDROCHLOROTHIAZIDE 12.5 MG CAPSULE (FP) PO SCH (09:46)
[2017-04-29] MEDS: PRENATAL VITAMINS W/ FOLIC ACID TABLET (FP) PO SCH (09:46)
[2017-04-29] MEDS: MAG HYDROX/AL HYDROX/SIMETH 30 ML UNIT-DOSE CUP PO PRN (09:49)
[2017-04-29] MEDS: IBUPROFEN 600 MG TABLET (FP) PO PRN (12:49)
[2017-04-29] MEDS: THIAMINE HCL 100 MG TABLET (FP) PO SCH (21:32)
[2017-04-29] MEDS: traZODone HCL 50 MG TABLET (FP) PO SCH (21:32)
[2017-04-29] MEDS: diphenhydrAMINE HCL 50 MG CAPSULE PO PRN (21:33)
[2017-04-30] MEDS: CYPROHEPTADINE HCL 4 MG TABLET PO SCH ×3 (06:20→21:31)
[2017-04-30] MEDS: metFORMIN HCL 500 MG TABLET (FP) PO SCH ×2 (07:06→16:49)
[2017-04-30] MEDS: MAG HYDROX/AL HYDROX/SIMETH 30 ML UNIT-DOSE CUP PO PRN ×2 (07:28→19:03)
[2017-04-30] MEDS: LISINOPRIL 5 MG TABLET (FP) PO SCH (09:29)
[2017-04-30] MEDS: IBUPROFEN 600 MG TABLET (FP) PO PRN ×2 (09:29→21:33)
[2017-04-30] MEDS: HYDROCHLOROTHIAZIDE 12.5 MG CAPSULE (FP) PO SCH (09:29)
[2017-04-30] MEDS: BACITRACIN 0.9 GM PACKET TP SCH ×2 (09:29→21:31)
[2017-04-30] MEDS: SERTRALINE HCL 50 MG TABLET (FP) PO SCH (09:31)
[2017-04-30] MEDS: PRENATAL VITAMINS W/ FOLIC ACID TABLET (FP) PO SCH (09:31)
[2017-04-30] MEDS: traZODone HCL 50 MG TABLET (FP) PO SCH (21:32)
[2017-04-30] MEDS: THIAMINE HCL 100 MG TABLET (FP) PO SCH (21:32)
[2017-04-30] MEDS: diphenhydrAMINE HCL 50 MG CAPSULE PO PRN (21:34)
[2017-05-01] MEDS: CYPROHEPTADINE HCL 4 MG TABLET PO SCH ×3 (06:38→21:28)
[2017-05-01] MEDS: metFORMIN HCL 500 MG TABLET (FP) PO SCH ×2 (07:08→16:53)
[2017-05-01] MEDS: LISINOPRIL 5 MG TABLET (FP) PO SCH (09:42)
[2017-05-01] MEDS: PRENATAL VITAMINS W/ FOLIC ACID TABLET (FP) PO SCH (09:42)
[2017-05-01] MEDS: HYDROCHLOROTHIAZIDE 12.5 MG CAPSULE (FP) PO SCH (09:42)
[2017-05-01] MEDS: SERTRALINE HCL 50 MG TABLET (FP) PO SCH (09:42)
[2017-05-01] MEDS: BACITRACIN 0.9 GM PACKET TP SCH ×2 (09:43→21:35)
[2017-05-01] MEDS: IBUPROFEN 600 MG TABLET (FP) PO PRN ×2 (09:43→15:23)
[2017-05-01] MEDS: MAG HYDROX/AL HYDROX/SIMETH 30 ML UNIT-DOSE CUP PO PRN (09:44)
[2017-05-01] MEDS: diphenhydrAMINE HCL 50 MG CAPSULE PO PRN (21:28)
[2017-05-01] MEDS: THIAMINE HCL 100 MG TABLET (FP) PO SCH (21:28)
[2017-05-01] MEDS: traZODone HCL 50 MG TABLET (FP) PO SCH (21:28)
[2017-05-02] MEDS: metFORMIN HCL 500 MG TABLET (FP) PO SCH (06:27)
[2017-05-02] MEDS: MAG HYDROX/AL HYDROX/SIMETH 30 ML UNIT-DOSE CUP PO PRN (06:28)
[2017-05-02] MEDS: CYPROHEPTADINE HCL 4 MG TABLET PO SCH (06:29)
[2017-05-02 06:49] VITALS: BP 118/73; PULSE 63; TEMP 97.8
--- NOTE | 2017-05-02 09:01 | PN ---
Psychiatric Progress Note Vital Signs: Vital Signs Period Temp Pulse Resp BP Sys/Singh Pulse Ox Last 24 Hr 97.8 F 63-69 18-18 115-118/73-74 Date of Session: 05/02/17 Chief Complaint:: Discharge Note HPI: Patient addressing Alcohol and Cocaine Dependence comorbid with Nicotine Dependence and Mood Disorder ROS: Asthma, HTN, Vertogo were medically managed Current Medications: Active Medications Generic Name Dose Route Start Last Admin Trade Name Freq PRN Reason Stop Dose Admin Acetaminophen 650 mg 04/17/17 15:07 04/26/17 15:42 Tylenol - PO 650 mg Q4H PRN Administration FEVER OR PAIN Al Hydroxide/Mg Hydroxide 30 ml 04/17/17 15:07 05/02/17 06:28 Mylanta Oral Suspension - PO 30 ml Q6H PRN Administration DYSPEPSIA Bacitracin 0.9 gm 04/25/17 10:00 05/01/17 21:35 Bacitracin - TP 0.9 gm BID LIANE Administration Cyproheptadine HCl 4 mg 04/18/17 22:00 05/02/17 06:29 Periactin - PO Not Given TID LIANE Diphenhydramine HCl 50 mg 04/17/17 15:07 05/01/17 21:28 Benadryl - PO 50 mg HSMR1 PRN Administration FOR ITCHING Eucalyptus/Menthol/Phenol/Sorbitol 1 each 04/17/17 15:07 Cepastat Lozenge - MM Q4H PRN SORE THROAT Guaifenesin 10 ml 04/17/17 15:07 Robitussin Dm - PO Q6H PRN COUGH Hydrochlorothiazide 12.5 mg 04/18/17 10:00 05/01/17 09:42 Hctz - PO 12.5 mg DAILY LIANE Administration Hydroxyzine Pamoate 25 mg 04/17/17 15:07 04/24/17 06:46 Vistaril - PO 25 mg Q4H PRN Administration AGITATION Ibuprofen 600 mg 04/17/17 15:16 05/01/17 15:23 Motrin - PO 600 mg Q6H PRN Administration PAIN Lisinopril 5 mg 04/25/17 10:00 05/01/17 09:42 Prinivil PO 5 mg DAILY LIANE Administration Loperamide HCl 4 mg 04/17/17 15:07 Imodium - PO Q6H PRN DIARRHEA Magnesium Hydroxide 30 ml 04/17/17 15:07 04/24/17 10:32 Milk Of Magnesia - PO 30 ml DAILY PRN Administration CONSTIPATION Meclizine HCl 12.5 mg 04/17/17 15:11 Antivert - PO TID PRN VERTIGO Metformin HCl 500 mg 04/18/17 07:00 05/02/17 06:27 Glucophage - PO 500 mg BIDI LIANE Administration Multivit/Folic Acid/Iron 1 tab 04/18/17 10:00 05/01/17 09:42 Vitamins ([facility]) - PO Not Given DAILY LIANE Pseudoephedrine/Triprolidine 1 combo 04/17/17 15:07 Actifed - PO TID PRN NASAL CONGESTION Sertraline HCl 50 mg 04/19/17 10:00 05/01/17 09:42 Zoloft - PO 50 mg DAILY LIANE Administration Thiamine HCl 100 mg 04/17/17 22:00 05/01/17 21:28 Vitamin B1 - PO 100 mg HS LIANE Administration Trazodone HCl 50 mg 04/18/17 22:00 05/01/17 21:28 Desyrel - PO 50 mg HS LIANE Administration Current Side Effect: No Lab tests ordered: Yes Lab tests reviewed: Yes Provider note:: Patient has completed this program. She has met her treatment goals and will continue to address her issues in [facility] residential treatment at [facility]. She verbalized understanding of the negative consequences of her addiction and told speech writer that from her participation in this program, she has learned:" I have to be patient, I have to take it a day at a time and be motivated." She responded well to Zolft 50 mg po daily and Trazadone 50 mg po HS. Scripts for these medications are electronically transmitted to [facility] at [address] [place] [address]. She is stable for discharge today Total face to face time:: 35 Mental Status Exam - Mental Status Exam Alert and Oriented to: Time, Place, Person Cognitive Function: Fair Mood: Hopeful, Euthymic Affect: Appropriate Patient Behavior: Cooperative Speech Pattern: Clear Voice Loudness: Normal Thought Process: Intact, Goal Oriented Thought Disorder: Not Present Hallucinations: Denies Suicidal Ideation: Denies Insight/Judgement: Fair Sleep: Fair Appetite: Good Muscle strength/Tone: Normal Gait/Station: Normal Psychiatric Treatment Plan - Problem List (1) Alcohol dependence Current Visit: Yes (2) Cocaine dependence Current Visit: No (3) Nicotine dependence Current Visit: No (4) Mood disorder Current Visit: Yes (5) Bipolar II disorder Current Visit: Yes (6) Asthma Current Visit: No (7) Essential hypertension Current Visit: No (8) Fracture of right ankle Current Visit: No (9) Sprain of right ankle Current Visit: No (10) Vertigo Current Visit: No Initial treatment plan: Patient is discharged today and referred to [facility] for [facility] residential treatment
[2017-05-02] MEDS: PRENATAL VITAMINS W/ FOLIC ACID TABLET (FP) PO SCH (09:46)
[2017-05-02] MEDS: HYDROCHLOROTHIAZIDE 12.5 MG CAPSULE (FP) PO SCH (09:46)
[2017-05-02] MEDS: SERTRALINE HCL 50 MG TABLET (FP) PO SCH (09:46)
[2017-05-02] MEDS: LISINOPRIL 5 MG TABLET (FP) PO SCH (09:46)
[2017-05-02] MEDS ORDERED: SILVER SULFADIAZINE 1% TOP CREAM 50 GM JAR TP SCH (10:00)
== END 2017-05-02 09:55 | disposition home or self-care (01) | DRG 772 ==
LOC: YASAS 13:51 → Y3W 13:53
PROVIDERS: ADMIT Psychiatry & Neurology Psychiatry; ATTEND Psychiatry & Neurology Psychiatry
PROC: HZ42ZZZ Group Counseling for Substance Abuse Treatment, Cognitive-Behavioral (ICD-10-PCS; principal; 2017-05-02)
DX: F10.20 Alcohol dependence, uncomplicated (principal); F14.20 Cocaine dependence, uncomplicated; F17.210 Nicotine dependence, cigarettes, uncomplicated; F33.9 Major depressive disorder, recurrent, unspecified; F31.81 Bipolar II disorder; I10 Essential (primary) hypertension; J45.909 Unspecified asthma, uncomplicated; R42 Dizziness and giddiness
CPT/HCPCS: 73562-TC-LT